=== PATIENT | female | born 1990 | race Caucasian/White ===

== ENCOUNTER 2016-11-22 14:32 | Emergency (ER) | payer OTHER ==
[2016-11-22 14:41] VITALS: TEMP 98; BMI 35.2
--- NOTE | 2016-11-22 15:21 | PDOC ---
History of Present Illness - General Chief Complaint: Blood Pressure Problem Stated Complaint: HEADACHES, HIGH BP Time Seen by Provider: 11/22/16 14:55 History Source: Patient - History of Present Illness Associated Symptoms: reports: headaches. denies: diaphoresis, nausea/vomiting, shortness of breath Past History - Past Medical History Allergies/Adverse Reactions: Allergies Allergy/AdvReac Type Severity Reaction Status Date / Time No Known Allergies Allergy Verified 11/22/16 14:41 Home Medications: Ambulatory Orders NK [No Known Home Medication] 11/22/16 Cardiac Disorders: Yes (VSD) - Surgical History Cardiac Surgery: Yes (FOR VSD) - Psycho/Social/Smoking Cessation Hx Suicidal Ideation: No Smoking History: Never smoked Hx Alcohol Use: Yes (SOCIAL) Drug/Substance Use Hx: No Substance Use Type: None Review of Systems - Review of Systems Respiratory: No: Shortness of Breath Cardiac (ROS): No: Chest Pain, Palpitations Neurological: Yes: Headache, Dizziness *Physical Exam - Vital Signs Last Vital Signs Temp Pulse Resp BP Pulse Ox 98.0 F 71 20 157/108 99 11/22/16 14:38 11/22/16 14:38 11/22/16 14:38 11/22/16 14:38 11/22/16 14:38 - Physical Exam General Appearance: Yes: Appropriately Dressed. No: Apparent Distress HEENT: positive: Normal Voice Neck: positive: Supple. negative: Lymphadenopathy (R), Lymphadenopathy (L) Respiratory/Chest: positive: Lungs Clear, Normal Breath Sounds. negative: Respiratory Distress Cardiovascular: positive: Regular Rate, S1, S2 Integumentary: positive: Dry, Warm Neurologic: positive: Fully Oriented, Alert, Normal Mood/Affect, Motor Strength 5/5 ED Treatment Course - LABORATORY CBC & Chemistry Diagram: 11/22/16 16:20 11/22/16 16:20 Medical Decision Making - Medical Decision Making 11/22/16 15:06 25 yo F, n/o sig hx, here to be evaluated for elevated BP. Patient states for the past week she has had diffuse headache that is sharp in nature and constant , with a severity of 5-6 out of 10. Has been taking Advil with no relief. States she's had similar headache in the past, but this headache more severe. Also reported dizziness that started 2 days ago that has since resolved. No visual changes, nausea, vomiting, URI symptoms, photophobia, fever or chills. Patient states symptoms were concerning, so walked into [facility] today for BP check and told her blood pressure was 160s/100s so decided to come to ED. Patient states she was seen by her PMD for headaches yesterday and had labs drawn and has another appointment for next Thursday to review results. See exam [facility] w/ elevated BP BP 157/108 at triage Pt well rob but appears anxious Exam otherwise unremarkable No red flags at this time Will control pain and rpt BP 11/22/16 15:57 BP now 170s/100s on reassessment. Continues to c/o [facility]. Will check CTH and labs at this point 11/22/16 17:44 11/22/[address] neg for hemorrhage or abnormal fluid collection, there is possibly mild dilitation of ventricular system. Pt reports that pain has resolved w/ reglan. Aware of CT findings and will f/u with her PMD next Thursday as already scheduled. Final BP 131/92. 11/22/16 18:45 11/22/16 19:05 *DC/Admit/Observation/Transfer Diagnosis at time of Disposition: Elevated BP Headache Qualifiers: Headache type: unspecified Headache chronicity pattern: acute headache Intractability: not intractable Qualified Code(s): R51 - Headache - Discharge Dispostion Disposition: HOME Condition at time of disposition: Improved - Referrals Referrals: STAFF,NOT ON [Primary Care Provider] - - Patient Instructions Printed Discharge Instructions: How to Monitor Your Blood Pressure at Home, DI for Headache Additional Instructions: Your blood work and CT were normal today Please follow up with your PMD next week
[2016-11-22] MEDS ORDERED: METOCLOPRAMIDE HCL INJECTION 10 MG/2 ML VIAL IVPB ONE (15:47)
[2016-11-22] MEDS ORDERED: METOCLOPRAMIDE HCL INJECTION 10 MG/2 ML VIAL ONE ×2 (15:52→15:58)
[2016-11-22 16:28] LABS: BASOPHIL 0.6 % (0-2.0); EOSINOPHIL 2.2 % (0-4.5); MCH 24.4 pg (25.7-33.7); MCHC 32.3 g/dl (32.0-36.0); MEAN CELL VOLUME 75.3 fl (80-96); MEAN PLT VOLUME 8.9 fl (7.5-11.1); NEUTROPHILS 64.8 % (42.8-82.8); PLATELET COUNT 271 K/MM3 (134-434); RDW 16.3 % (11.6-15.6); WHITE BLOOD COUNT 8.6 K/mm3 (4.0-10.0)
[2016-11-22 16:29] LABS: URINE APPEARANCE CLOUDY; URINE BILIRUBIN NEGATIVE (NEGATIVE); URINE COLOR YELLOW; URINE GLUCOSE (UA) NEGATIVE (NEGATIVE); URINE KETONE NEGATIVE (NEGATIVE); URINE NITRITE NEGATIVE (NEGATIVE); URINE PROTEIN NEGATIVE (NEGATIVE); URINE UROBILINOGEN NEGATIVE E.U./dl (0.2-1.0)
[2016-11-22 16:36] LABS: URINE BLOOD 1+ (NEGATIVE); URINE LEUK ESTERASE 3+ (NEGATIVE)
[2016-11-22 16:52] LABS: ALBUMIN 3.9 g/dl (3.4-5.0); ANION GAP 10 (8-16); BILIRUBIN,TOTAL 0.5 mg/dL (0.2-1.0); CALCIUM 9.1 mg/dL (8.5-10.1); CO2 26 mmol/L (21-32); CREATININE 0.7 mg/dL (0.55-1.02); GLUCOSE,RANDOM 93 mg/dL (74-106); SGOT/AST 16 U/L (15-37); SGPT/ALT 33 U/L (12-78); TOT PROT 7.8 g/dl (6.4-8.2)
[2016-11-22 16:53] LABS: ALK PHOS 91 U/L (45-117)
[2016-11-22 16:54] LABS: URINE BACTERIA RARE /hpf (NONE SEEN); URINE MUCUS MANY; URINE RBC 14 /hpf (0-3); URINE WBC 96 /hpf (3-5)
[2016-11-22 18:30] VITALS: BP 131/92; PULSE 73
== END 2016-11-22 18:54 | disposition home or self-care (01) ==
LOC: JER 14:32
PROC: 3E033GC Introduction of Other Therapeutic Substance into Peripheral Vein, Percutaneous Approach (ICD-10-PCS; principal; 2016-11-22)
DX: I10 Essential (primary) hypertension (principal); R51 Headache
CPT/HCPCS: 36415; 70450-TC; 80053; 81003; 81015; 84703; 85025; 87086; 99284-25